=== PATIENT | male | born 1990 | race Two or more races ===

== ENCOUNTER 2020-06-20 18:17 | Emergency (ER) | payer OTHER ==
[~2020-06-20] VITALS: Ht 172.7 cm; Wt 77.1 kg
[2020-06-20] MEDS ORDERED: KETO10TA2 PO (20:33)
== END 2020-06-20 20:42 | disposition home or self-care (01) ==
LOC: ER 18:17 → CPU-OBS 18:44 → ER 20:42
DX: R07.89 Other chest pain (principal); I31.9 Disease of pericardium, unspecified
CPT/HCPCS: G0378; G0379; 93005